=== PATIENT | male | born 1975 | race Caucasian/White ===

== ENCOUNTER 2016-07-28 19:49 | Emergency (ER) | payer OTHER ==
--- NOTE | 2016-07-28 19:58 | EDPHY ---
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 Seen by Provider: 07/28/16 19:58 - Personal History Current Tetanus/Diphtheria Vaccine: Yes - Medical/Surgical History Hx Asthma: Yes Hx Chronic Respiratory Disease: No Hx Diabetes: No Hx Cardiac Disease: No Hx Renal Disease: No Hx Cirrhosis: No Hx Alcoholism: No Hx HIV/AIDS: No Hx Splenectomy or Spleen Trauma: No Other PMH: LYMES, RHEUMATOID, MIGRAINES, PERIPHERAL NEUROP, FX ANKLE SURG, HIGH LIVER ENZ, ASTHMA - Social History Smoking Status: Never smoked Constitutional: Initial Vital Signs Temperature (C) 36.5 C 07/28/16 19:53 Heart Rate 94 07/28/16 19:53 Respiratory Rate 28 H 07/28/16 19:53 Blood Pressure 136/99 H 07/28/16 19:53 O2 Sat (%) 98 07/28/16 19:53 O2 Delivery Mode Room Air Allergies/Adverse Reactions: almond oil Allergy (Verified 07/28/16 19:52) Home Medications: Medication Instructions Recorded Albuterol [Proventil Inhaler] 1 - 2 puffs IH Q4 #1 mdi 07/28/16 EPINEPHrine 07/28/16 Famotidine [Pepcid 20 MG (OTC)] 20 mg PO DAILY #10 tab 07/28/16 Naltrexalone 07/28/16 Pregnenolone Micronized 07/28/16 predniSONE 40 mg PO DAILY #10 tab 07/28/16 Medical Decision Making ED Course/Re-evaluation: CHIEF COMPLAINT: Possible allergic reaction HISTORY OF PRESENT ILLNESS: 40-year-old gentleman who over the last 30 minutes ate a haritha and threw up few minutes later and felt like he might be having allergic reaction. He denies any breathing difficulty now but says he did have difficulty breathing temporarily while he was vomiting. He is fairly anxious also. In addition, he denies any tongue swelling now swelling or lip swelling. Did give himself an EpiPen shot because he does have allergies and he was not sure if that is what was happening. REVIEW OF SYSTEMS: A 10 point review of systems was performed and is negative with the exception of the elements mentioned in the history of present illness. PHYSICAL EXAM: HR, BP, O2 Sat, RR. Temp noted General Appearance: Alert, well hydrated, appropriate, and non-toxic appearing. Head: Atraumatic without scalp tenderness or obvious injury Eyes: Pupils equal, round, reactive to light and accommodation, EOMI, no trauma , no injection. Ears: Clear bilaterally, no perforation, normal landmarks Nose: Atraumatic, no rhinorrhea, clear. Throat: There is no erythema or exudates, no lesions, normal tonsils, mucus membranes moist. Neck: Supple, 2+ carotid upstroke, nontender, no lymphadenopathy. Respiratory: No retractions, no distress, no wheezes, and no accessory muscle use. Lungs are clear to auscultation bilaterally. Cardiovascular: Regular rate and rhythm, no murmurs, rubs, or gallops. Bilateral carotid, radial, dorsalis pedis, and posterior tibial pulses intact. Good capillary refill all extremities. Gastrointestinal: Abdomen is soft, nontender, non-distended, no masses, no rebound, no guarding, no peritoneal signs. Musculoskeletal: Normal active ROM of all extremities, atraumatic. Neurological: Alert, appropriate, and interactive. The patient has normal DTRs and non-focal cranial nerves, motor, sensory, and cerebellar exam. Skin: No rashes, good turgor, no nodules on palpation. Past medical history: Allergies Past surgical history: Noncontributory Family history: Noncontributory Social history: Single, uses alcohol but does not abuse tobacco drugs or alcohol DIAGNOSTICS/PROCEDURES/CRITICAL CARE TIME: Study: Chest x-ray Indication: SOB Results: Chest x-ray was obtained. The results of the study are normal. Radiologist report pending. I viewed the images myself on the PACS system. DIFFERENTIAL DIAGNOSIS: The differential diagnosis included but was not limited to angioedema, anaphylaxis, anaphylactoid reaction, urticarial reaction , and other infectious causes for skin rash. MEDICAL DECISION MAKING: This patient has no evidence of ongoing allergic reaction. Since he did give himself an EpiPen and since he has allergies and since he felt he had breathing trouble during the vomiting episode I will treat him as though it were an allergic reaction. This exam is normal now. I have given 1 mg of Ativan, 50 mg of Benadryl, 40 mg of Pepcid, and 60 mg of prednisone. Patient is doing much better on serial examination and I will discharge the patient home. He has refills on his EpiPen. I will give him 5 days of steroids This patient has 100% room air saturations. Chest x-ray is completely unremarkable. The patient's significant other came out to state that he feels much better and would like to go home now I confirmed that with the patient and we will discharge the patient - Data Points Medications Given: Discontinued Medications Albuterol/Ipratropium (Duoneb) 3 ml IH EDNOW ONE Stop: 07/28/16 20:30 Last Admin: 07/28/16 20:35 Dose: 3 ml Diphenhydramine HCl (Benadryl) 50 mg PO EDNOW ONE Stop: 07/28/16 20:02 Last Admin: 07/28/16 20:10 Dose: 50 mg Famotidine (Pepcid) 40 mg PO EDNOW ONE Stop: 07/28/16 20:02 Last Admin: 07/28/16 20:20 Dose: 40 mg Lorazepam (Ativan) 1 mg PO EDNOW ONE Stop: 07/28/16 20:03 Last Admin: 07/28/16 20:10 Dose: 1 mg Lorazepam (Ativan) 1 mg PO EDNOW ONE Stop: 07/28/16 20:31 Last Admin: 07/28/16 20:40 Dose: 1 mg Ondansetron HCl (Zofran Odt) 4 mg PO EDNOW ONE Stop: 07/28/16 20:11 Last Admin: 07/28/16 20:11 Dose: 4 mg Prednisone (Prednisone) 60 mg PO EDNOW ONE Stop: 07/28/16 20:02 Last Admin: 07/28/16 20:10 Dose: 60 mg Departure - Departure Disposition: Home, Routine, Self-Care Clinical Impression: Allergic reaction Qualifiers: Encounter type: initial encounter Qualifier Code: (T78.40XA) Allergy, unspecified, initial encounter Condition: Good Instructions: Food Allergy (ED) Additional Instructions: Use 25mg Benadryl daily if need for itching. Take prednisone, Pepcid, and albuterol as prescribed. Follow up with your primary care provider or telephone lines repairer next week. Referrals: Nan Freire MD [Primary Care Provider] - As per Instructions Prescriptions: Famotidine [Pepcid 20 MG (OTC)] 20 mg PO DAILY #10 tab Albuterol [Proventil Inhaler] 1 - 2 puffs IH Q4 #1 mdi predniSONE 40 mg PO DAILY #10 tab
[2016-07-28] MEDS ORDERED: diphenhydrAMINE 50 MG CAP PO ONE (20:01)
[2016-07-28] MEDS ORDERED: predniSONE 20 MG TAB ONE (20:01)
[2016-07-28] MEDS ORDERED: predniSONE 20 MG TAB PO ONE (20:01)
[2016-07-28] MEDS ORDERED: LORazepam 1 MG TAB ONE (20:01)
[2016-07-28] MEDS ORDERED: FAMOTIDINE 20 MG TAB PO ONE (20:01)
[2016-07-28] MEDS ORDERED: diphenhydrAMINE 25 MG CAP PO ONE (20:01)
[2016-07-28] MEDS ORDERED: LORazepam 1 MG TAB PO ONE ×2 (20:02→20:30)
[2016-07-28] MEDS ORDERED: ONDANSETRON DISINTEGRATING 4 MG TAB ONE (20:03)
[2016-07-28] MEDS ORDERED: ONDANSETRON 4 MG/2 ML VIAL ONE (20:03)
[2016-07-28] MEDS ORDERED: ONDANSETRON DISINTEGRATING 4 MG TAB PO ONE (20:10)
[2016-07-28] MEDS ORDERED: IPRATROPIUM/ALBUTEROL 3 ML DEYVIAL IH ONE (20:29)
[2016-07-28] MEDS ORDERED: IPRATROPIUM/ALBUTEROL 3 ML DEYVIAL ONE (20:30)
--- NOTE | 2016-07-28 21:06 | DX ---
Chest, PA and lateral. HISTORY: Dyspnea FINDINGS: Heart size is within normal limits. Pulmonary vascularity appears normal. The lungs are delfino ar. No evidence for pleural effusion or pneumothorax. No significant osseous abnormality. Good inspir atory effort versus mild air trapping. IMPRESSION: Good inspiratory effort versus mild air trapping. Otherwise normal chest x-ray.
[2016-07-28 21:54] VITALS: BP 106/54; PULSE 80; RESP 16; TEMP 97.9; O2SAT 96
== END 2016-07-28 21:53 | disposition home or self-care (01) ==
DX: T78.40XA Allergy, unspecified, initial encounter (principal); J45.909 Unspecified asthma, uncomplicated
CPT/HCPCS: J2405

== ENCOUNTER → 2018-04-30 | Outpatient (CLI) | payer OTHER | LOC: FIMAGING 07:21 | PROVIDERS: ATTEND Allergy & Immunology Allergy | DX: R10.9 Unspecified abdominal pain (principal); Z86.79 Personal history of other diseases of the circulatory system ==